=== PATIENT | male | born 1940 | race Caucasian/White ===

== ENCOUNTER 2017-08-04 10:00 | Day surgery (SDC) | payer MEDICARE ==
[~2017-08-04 10:00] MED LIST: Buffered Lidocaine 0.9% SYRIN* 5 ML/SYR SYRINGE INTRADERM ONE; Famotidine TAB* 20 MG PO ONE; Metoclopramide TAB* 10 MG PO ONE
[2017-08-04] MEDS ORDERED: ceFAZolin 2 GM PREMIX (*) 2 GM/50 ML BAG IVPB ONE (10:17)
[2017-08-04] MEDS ORDERED: Buffered Lidocaine 0.9% SYRIN* 5 ML/SYR SYRINGE ONE (10:17)
[2017-08-04] MEDS ORDERED: Famotidine TAB* 20 MG ONE (10:17)
[2017-08-04] MEDS ORDERED: Ketorolac INJ* 30 MG/ML 1 ML VIAL ONE (10:17)
[2017-08-04] MEDS ORDERED: Metoclopramide TAB* 10 MG ONE (10:17)
[2017-08-04] MEDS ORDERED: fentaNYL* 50 MCG/ML 2 ML VIAL (100 MCG VIAL) ONE (11:20)
[2017-08-04] MEDS ORDERED: Dexamethasone IV* 4 MG/ML 1 ML (4 MG) ONE (11:20)
[2017-08-04] MEDS ORDERED: Ondansetron INJ* 2 MG/ML VIAL ONE (11:20)
[2017-08-04] MEDS ORDERED: Propofol* 10 MG/ML 20 ML BTL IV PUSH ONE (11:20)
[2017-08-04] MEDS ORDERED: Midazolam* 1 MG/ML 5 ML VIAL (5 MG) ONE (11:20)
[2017-08-04] MEDS ORDERED: Lidocaine 2% PF * 5 ML VIAL ONE (11:20)
[2017-08-04] MEDS ORDERED: Lidocain 1% EPI 1:100,000 * 30 ML MDV ONE (11:45)
[2017-08-04] MEDS ORDERED: Bupivacaine 0.25% SDV* 30 ML ONE (11:46)
[2017-08-04] MEDS ORDERED: Naloxone* 0.4 MG/ML 1 ML VIAL IV PRN (11:54)
[2017-08-04] MEDS ORDERED: fentaNYL* 50 MCG/ML 2 ML VIAL (100 MCG VIAL) IV PRN (11:54)
[2017-08-04] MEDS ORDERED: oxyCODONE/Acetamin 5/325 MG* TAB PO PRN (11:54)
[2017-08-04] MEDS ORDERED: Ondansetron INJ* 2 MG/ML VIAL IV PRN (11:54)
[2017-08-04] MEDS ORDERED: Lidocaine 1% MPF wEPI 200,000* 30 ML SDV ONE (12:00)
[2017-08-04 16:05] VITALS: BP 119/68
--- NOTE | 2017-08-04 21:54 | OP ---
OPERATIVE REPORT: DATE OF OPERATION: 08/04/17 DATE OF : 38 SURGEON: Dino Perez MD SHADE BANDER: Molly Pal NP ANESTHESIOLOGIST: Dr. Lyons. ANESTHESIA: LMAC anesthesia. PRE-OP DIAGNOSIS: Left inguinal hernia. POST-OP DIAGNOSIS: Left inguinal hernia. OPERATIVE PROCEDURE: Left inguinal hernia repair with mesh. DESCRIPTION OF PROCEDURE: The patient was supine on the operative table. After adequate intravenous sedation, compression stockings, Rajani Hugger warmer and intravenous antibiotics, the left groin was clipped and prepped with antiseptic, drained in a sterile fashion. Local infiltrative anesthesia was administered. Approximately 8 cm incision was created and carried down to the tissue layers to the e xternal oblique, which was opened in the direction of its fibers. Cord structures were encircled wit h a Ana Lilia drain and tented upward and the indirect space hernia was dissected free from the cord st ructures and reduced. A cone mesh plug was placed into the internal ring, sutured up to the transver se abdominis and down to the inguinal ligament. Second piece of mesh was placed in the inguinal floo r, sutured at the tubercle. Tails were split, brought around the cord structures and tacked down lat erally. External oblique was closed over top with 2- 0 Vicryl, Javier's was closed with 3-0 Vicryl a nd skin was closed with 4-0 Surgipro. Sterile dressing was placed. He tolerated the procedure well, was awakened and brought to the Recovery in good condition. There were no complications, no drains, no pathologic specimens. Sponge and instrument counts were correct. Estimated blood loss 10 mL. [id number]/[facility] #: [id number]
== END 2017-08-04 16:24 | disposition home or self-care (01) ==
LOC: OR 10:00
PROVIDERS: ATTEND Surgery
DX: K40.90 Unilateral inguinal hernia, without obstruction or gangrene, not specified as recurrent (principal); Z85.46 Personal history of malignant neoplasm of prostate
CPT/HCPCS: A9270-GY; C1781; J0690; J1100; J1885; J2001; J2250; J2405; J2704; J3010